=== PATIENT | male | born 1955 | race Caucasian/White ===

== ENCOUNTER 2019-10-28 16:41 | Emergency (ER) | payer SELFPAY ==
[2019-10-28 17:10] VITALS: BMI 29.0
--- NOTE | 2019-10-28 17:29 | ED_ITS ---
HPI - Extremity Problem General: Chief complaint: Extremity Injury, Lower Stated complaint: RIGHT LEG PAIN/INJURY Time Seen by Provider: 10/28/19 17:28 Source: patient Mode of arrival: ambulatory Limitations: no limitations History of Present Illness: HPI Narrative: Patient comes in today for concerns of swelling and redness to the right lower extremity. Patient reports an injury that occurred 1 week ago when his leg was pinned between the gate and a bowl causing injury to the right medial lower leg. Patient was seen yesterday by primary care and was started on cephalexin for possible infection. Patient appears well. Patient appears in mild to moderate pain at rest. Patient reports increased pain with initial ambulation which improves as he is up and moving around. MD Complaint: extremity pain and extremity swelling Review of Systems General: Reports: 10 or more systems reviewed and unremarkable except in HPI and below Musc: Reports: extremity pain and extremity swelling PFS ED PFSH: Social History Smoking and tobacco status: never smoked Physical Exam Const: COMMON NORMALS: no apparent distress and oriented x3 GENERAL AP PEARANCE: cooperative HENMT: COMMON NORMALS: normocephalic, TM's normal bilaterally and external nose normal HEAD & SCALP: normal to inspection and normocephalic NOSE: external nose normal TYMPANIC MEMBRANE: TM's normal bilaterally MOUTH: oral and palatal mucosa normal THROAT: posterior oropharynx normal Eye: GENERAL EYE: normal appearance of both eyes Neck/C-Spine: COMMON NORMALS: full ROM Lymph: LYMPHATIC: no lymphadenopathy noted Chest: COMMONS NORMALS: inspection of chest normal Resp: COMMON NORMALS: normal respiratory effort EFFORT & INSPECTION: Yes able to speak in complete sentences Cardio: COMMON NORMALS: regular rate and regular rhythm RATE: regular rate RHYTHM: regular rhythm GI: COMMON NORMALS: non-tender : COMMON NORMALS: Yes no CVA tenderness BLADDER/KIDNEY EXAM: Yes no CVA tenderness Back/Pelvis: COMMON NORMALS: no CVA tenderness and thoracic and lumbar spine normal to inspection Extremity: NARRATIVE EXTREMITY EXAM: Patient has a area of redness approximately 17 cm x 6 cm ovoid to the right inner lower extremity. There is a palpable area of ballottement that is approximately 6 x 4 ovoid in shape. Patient has distal pulses. Patient has swelling to the extremity with ecchymosis extending from the upper thigh to the sole of the foot. Patient has good range of motion of the extremity without aggravation of pain. Patient's tenderness is mainly at the site of ballottement. Neuro: COMMON NORMALS: oriented x3 and moves all extremities Psych: COMMON NORMALS: mental status grossly normal and cooperative Skin: COMMON NORMALS: no rashes or lesions noted GENERAL SKIN EXAM: no rashes or lesions noted Procedures Abscess I/D Site: lower extremity Side (if applicable): right Local Anesthetic: lidocaine 2% and with epi Amount of anesthesia used (mL): 6 Technique: incised with #11 blade Amount of fluid expressed (mL): 60 Irrigation: No Packing used?: none Course Vital Signs: Vital signs: Vital Signs Pulse Rate 82 10/28/19 19:00 Respiratory Rate 18 10/28/19 19:00 Blood Pressure 122/97 10/28/19 19:00 Pulse Oximetry 96 10/28/19 19:00 MDM - Extremity (Nontraumatic) MDM Narrative: Medical decision making narrative: Patient comes in with a fluctuant mass to the right lower leg. Patient reports injury 1 week ago and has had increasing discomfort and swelling to the area. Patient does have redness and some warmth to the area. Ultrasound of the extremity noted no DVT but a large collection of fluid that could be a hematoma or abscess. With patient consent a 3 cm incision was made in the area of fluctuance and a large hematoma was evacuated from the area. Minimal bleeding was noted. Pressure dressing was applied and patient was monitored post procedure. Patient was recommended to continue cephalexin as directed and was given a dose of ceftriaxone in the ER. Recommended patient avoid activity for the next 2 to 3 days and to monitor for worsening bleeding or high fever. Patient reported understanding and agreed to plan. Discharge Plan Discharge Patient Disposition: Home, Self-Care Clinical Impression: Hematoma of lower leg Condition: Stable Prescriptions: No Action aspirin 81 mg Tablet,Delayed Release (Dr/Ec) 81 mg PO DAILY RF: 0 simvastatin 20 mg tablet 20 mg PO DAILY RF: 0 cephalexin 500 mg Tablet 500 mg PO TID RF: 0 diltiazem HCl 120 mg capsule,extended release 24hr 120 mg PO DAILY RF: 0 Eliquis 5 mg Tablet 5 mg PO BID RF: 0 Discharge Orders: Discharge Order (Routine); Ordered 10/28/19 Ordered By: Dominick Cortez Referrals: Narinder Patrick DO [Family Provider] - Pelon Newman [Primary Care Provider] - Discharge Diet: Usual diet Discharge Activity: Limit activity as instructed Patient Instructions: Abscess Incision and Drainage (ED) Activity Restrictions/Additional Instructions: Keep extremity elevated tonight and limit activity Return to ER for persistent bleeding, high fever, or worsening pain Follow-up with primary care in one week Continue with antibiotics, Cephalexin, as prescribed Coding Level of Care Code ED Professional [employer] for Tamara Fwd Exam Comprehensive
--- NOTE | 2019-10-28 17:48 | US_ITS ---
WS: [id number] ULTRASOUND SOFT TISSUES medial RIGHT leg HISTORY: right lower ext, probable abscess hematoma COMPARISON: None available. TECHNIQUE: 2-D and color Doppler imaging is submitted. There is a large complex nonvascular collection in the soft tissues of the medial RIGHT leg. This cor responds to the palpable abnormality. Collection extends over a length of greater than 5 cm x 2.3 cm. Most consistent with a retracting hematoma. Coarse thick septations from retracting clot. US/US soft tissue/extremity [id number] IMPRESSION: Large retracting hematoma in the soft tissues of the RIGHT leg.
--- NOTE | 2019-10-28 17:48 | USCV_ITS ---
Emmanuel Khan Age: 64 Gender: M : 1955 Exam Date: 10/28/2019 18:17 Ordering Phys: Dominick Cortez Technologist: Woody Hoff Exam Location: [facility] [place]_ Indication: RT LEG HEMATOMA LEG SMASHED BY BULL HISTORY: Lower extremity pain. Lower extremity edema. PROCEDURES: Venous duplex imaging was performed in only the right lower extremity. The following venous structures were evaluated: common femoral vein, profunda vein, proximal portion of the greater saphenous vein, superficial femoral vein, and the popliteal vein. FINDINGS: Normal 2-D Doppler and augmentation and compressibility throughout the lower extremity venous structures. Additional imaging through the proximal calf veins also reveals no thrombus. Limited evaluation of the greater saphenous vein is patent with no thrombus. CONCLUSIONS No DVT right lower extremity. Dr. Beryl Marroquin DO (Electronically Signed) Final Date: 29 October 2019 12:03 S
[2019-10-28 18:03] VITALS: BP 138/88; PULSE 92; RESP 16; O2SAT 97
[2019-10-28 19:00] VITALS: BP 122/97; PULSE 82; RESP 18; O2SAT 96
[2019-10-28 19:30] VITALS: BP 122/97; PULSE 87; RESP 16; O2SAT 98
[2019-10-28] MEDS: cefTRIAXone 1,000 mg SDV 1000 MG IM (19:55)
[2019-10-28 20:00] VITALS: BP 135/90; PULSE 76; RESP 18; O2SAT 96
[2019-10-28 20:50] VITALS: BP 135/90; PULSE 85; RESP 16
== END 2019-10-28 20:51 | disposition home or self-care (01) ==
PROVIDERS: Emergency Provider Nurse Practitioner Family; Family Provider Family Medicine; PCP Physician Assistant Medical
DX: L02.415 Cutaneous abscess of right lower limb (principal); Z79.82 Long term (current) use of aspirin; Z79.01 Long term (current) use of anticoagulants; R60.0 Localized edema
CPT/HCPCS: 10140; 12345; 76882; 93971; 96372; 99282; 99283; J0696

== ENCOUNTER → 2023-09-05 13:47 | Outpatient (BNVA) | payer MEDICARE, SELFPAY | PROVIDERS: Family Provider Family Medicine; PCP Physician Assistant Medical; Visit Provider Dermatology | DX: D48.5 Neoplasm of uncertain behavior of skin (principal); L57.0 Actinic keratosis; C44.612 Basal cell carcinoma of skin of right upper limb, including shoulder; L57.8 Other skin changes due to chronic exposure to nonionizing radiation | CPT/HCPCS: 11102; 17000; 99203 ==

== ENCOUNTER → 2023-09-19 08:01 | Outpatient (BNVA) | payer MEDICARE, SELFPAY | PROVIDERS: Family Provider Family Medicine; PCP Physician Assistant Medical; Visit Provider Dermatology | DX: C44.612 Basal cell carcinoma of skin of right upper limb, including shoulder (principal) | CPT/HCPCS: 11603; 12034 ==

== ENCOUNTER → 2023-10-04 08:06 | Outpatient (BNVA) | payer MEDICARE, SELFPAY | PROVIDERS: Family Provider Family Medicine; PCP Physician Assistant Medical; Visit Provider Dermatology | DX: C44.41 Basal cell carcinoma of skin of scalp and neck (principal); C44.319 Basal cell carcinoma of skin of other parts of face | CPT/HCPCS: 12032; 13132; 17311 ==

== ENCOUNTER → 2024-02-04 13:58 | Outpatient (BNVA) | payer MEDICARE, SELFPAY | PROVIDERS: Family Provider Family Medicine; PCP Physician Assistant Medical; Visit Provider Nurse Practitioner Family | DX: D48.5 Neoplasm of uncertain behavior of skin (principal); L57.0 Actinic keratosis; L82.0 Inflamed seborrheic keratosis; L57.8 Other skin changes due to chronic exposure to nonionizing radiation; L81.3 Cafe au lait spots; Z85.828 Personal history of other malignant neoplasm of skin | CPT/HCPCS: 11102; 17000; 17110; 99213 ==

== ENCOUNTER → 2024-05-22 08:48 | Outpatient (BNVA) | payer MEDICARE, SELFPAY | PROVIDERS: Family Provider Family Medicine; PCP Physician Assistant Medical; Visit Provider Dermatology | DX: C44.311 Basal cell carcinoma of skin of nose (principal); C44.41 Basal cell carcinoma of skin of scalp and neck; D36.12 Benign neoplasm of peripheral nerves and autonomic nervous system, upper limb, including shoulder; L72.0 Epidermal cyst | CPT/HCPCS: 13152; 17272; 17311; 99213 ==

== ENCOUNTER → 2024-06-18 10:32 | Outpatient (BNVA) | payer MEDICARE, SELFPAY | PROVIDERS: Family Provider Family Medicine; PCP Physician Assistant Medical; Visit Provider Dermatology | DX: C44.311 Basal cell carcinoma of skin of nose (principal); L92.3 Foreign body granuloma of the skin and subcutaneous tissue | CPT/HCPCS: 99213 ==

== ENCOUNTER → 2024-07-01 11:33 | Outpatient (BNVA) | payer MEDICARE, SELFPAY | PROVIDERS: Family Provider Family Medicine; PCP Physician Assistant Medical; Visit Provider Dermatology | DX: L92.3 Foreign body granuloma of the skin and subcutaneous tissue (principal); Z48.817 Encounter for surgical aftercare following surgery on the skin and subcutaneous tissue | CPT/HCPCS: 99212 ==

== ENCOUNTER → 2024-08-06 12:50 | Outpatient (BNVA) | payer MEDICARE, SELFPAY | PROVIDERS: Family Provider Family Medicine; PCP Physician Assistant Medical; Visit Provider Nurse Practitioner Family | DX: D36.12 Benign neoplasm of peripheral nerves and autonomic nervous system, upper limb, including shoulder (principal) | CPT/HCPCS: 11102; 17000; 99213 ==

== ENCOUNTER → 2024-10-23 10:40 | Outpatient (BNVA) | payer MEDICARE, SELFPAY | PROVIDERS: Family Provider Family Medicine; PCP Physician Assistant Medical; Visit Provider Student in an Organized Health Care Education/Training Program | DX: K46.9 Unspecified abdominal hernia without obstruction or gangrene (principal) | CPT/HCPCS: 99204 ==

== ENCOUNTER 2024-12-10 08:03 | Day surgery (SDC) | payer MEDICARE, SELFPAY ==
[2024-12-10] VITALS (11 sets, daily range): BP systolic 119–137; BP diastolic 87–105; PULSE 69–115; RESP 11–20; TEMP 36.1–36.4; O2SAT 96–99; BMI 27.5
--- NOTE | 2024-12-10 08:40 | W.PM.OPSFHP ---
Same Day Surgery H&P Indication for Procedure/HPI DATE OF PROCEDURE: December 10, 2024 CHIEF COMPLAINT/INDICATIONFOR SURGICAL PROCEDURE: symptomatic left inguinal hernia PREOP DIAGNOSIS: symptomatic left inguinal hernia PLANNED PROCEDURE: Operation Date: 12/10/24 10:10 Proposed Procedures p LEFT Open Inguinal Hernia Repair w/ Mesh 16612 K46.9(Left) - Almas Best MD Medications/Allergies* Home Medications ?Medication ?Instructions ?Recorded ?Confirmed ?Type apixaban 5 mg tablet (Eliquis) 5 mg PO BID 10/28/19 12/09/24 History diltiazem HCl 120 mg 120 mg PO DAILY 10/28/19 12/09/24 History capsule,extended release 24 hr aspirin 325 mg tablet 325 mg PO DAILY 10/23/24 12/09/24 History tamsulosin 0.4 mg capsule 0.4 mg PO DAILY 10/23/24 12/09/24 History Allergies/Adverse Reactions Allergy/AdvReac Type Severity Reaction Status Date / Time Penicillins Allergy Severe Unknown Verified 10/23/24 10:56 Pertinent History/Comorbid Conditions* Social History Smoking and tobacco/nicotine status: never used tobacco/nicotine Pertinent Exam Findings alert, oriented x 3, clear to auscultation bilaterally, operative site marked and procedure specific exam findings abdomen soft, nt, nd Recommendations Risks and benefits of procedure reviewed Surgery/Procedure today Coding Level of Care Code Acute Code for Chg Jl
--- NOTE | 2024-12-10 08:41 | ECG_ITS ---
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: : 1955 Requested By: Alejandra Clements Order Number: [id number] Reading MD: SHANITA RESTREPO Measurements Intervals [place] Rate: 120 P: 0 NE: 0 QRS: -29 QRSD: 149 T: -13 QT: 343 QTc: 485 Interpretive Statements ATRIAL FIBRILLATION WITH RAPID VENTRICULAR RESPONSE WITH ABERRANT CONDUCTION OR VENTRICULAR PREMATURE COMPLEXES BORDERLINE LEFT AXIS DEVIATION [QRS AXIS < -20] RIGHT BUNDLE BRANCH BLOCK [120+ ms QRS DURATION, UPRIGHT V1, 40+ ms S IN I/aVL/V4/V5/V6] Compared to ECG 04/09/2018 04:31:33 Ventricular premature complex(es) now present Aberrant conduction of supraventricular beat(s) now present Electronically Signed On 12-17-2024 22:55:16 CDT by SHANITA RESTREPO [email or web address]
--- NOTE | 2024-12-10 09:09 | ANES.PREANE2 ---
Pre-Anesthetic Assessment Height/Weight: Height 1.78 m Weight 87.09 kg Temp Pulse Resp BP Pulse Ox O2 Del Method 97.5 F L 69 18 134/97 98 Room Air 12/10/24 08:20 12/10/24 08:20 12/10/24 08:20 12/10/24 08:20 12/10/24 08:20 12/10/24 08:47 Preop Diagnosis: symptomatic left inguinal hernia Operation Date: 12/10/24 10:10 Proposed Procedures p LEFT Open Inguinal Hernia Repair w/ Mesh 13242 K46.9(Left) - Almas Best MD Familial anesthetic complications: None Was Beta Brandy taken within 24 hours: N/A Was Clonidine taken within 24 hours: N/A Last intake: Intake Last Liquid Date 12/09/24 Last Liquid Time 23:00 Last Solid Date 12/09/24 Last Solid Time 20:00 Social No alcohol and No tobacco Exam alert, oriented x 3, clear to auscultation bilaterally and regular rate & rhythm Airway Mallampati: Class II Dentition: other (missing) CV/HEM Atrial Fibrillation EKG obtained Pulse ox placed, HR between 93 - 103. Reviewed EKG with Dr. Murdock to help with interpretation - excess screen artifact. No significant ischemic changes. Patient states able to achieve > 4 METS, denies any SOB, CP, MARTINEZ. Neuropsych Cerebrovascular Accident (residual word finding difficulties and a tendency to veer off to the right ) Anesthetic Plan ASA status: 3 Anesthesia: General Risk of > 500 ml blood loss (7ml/kg in children): No Medications/Allergies Home Medications ?Medication ?Instructions ?Recorded ?Confirmed ?Last Taken ?Type apixaban 5 mg tablet (Eliquis) 5 mg PO BID 10/28/19 12/09/24 12/07/24 History diltiazem HCl 120 mg 120 mg PO DAILY 10/28/19 12/09/24 12/07/24 History capsule,extended release 24 hr aspirin 325 mg tablet 325 mg PO DAILY 10/23/24 12/09/24 12/05/24 History tamsulosin 0.4 mg capsule 0.4 mg PO DAILY 10/23/24 12/09/24 12/09/24 History Allergies Allergy/AdvReac Type Severity Reaction Status Date / Time Penicillins Allergy Severe Unknown Verified 10/23/24 10:56 [facility] Anesthesia Social History Smoking and tobacco/nicotine status: never used tobacco/nicotine
[2024-12-10] MEDS: sodium chloride 0.9% 1,000 ML 30 ML IV (09:31)
[2024-12-10] MEDS: VANCOMYCIN ADD-Vantage 1,000 MG in 0.9% NaCl ADD-Vantage 250 ML 250 MG IV (09:34)
[2024-12-10] MEDS: BUPivacaine 0.25% INJ 10 mL INJECTION (10:06)
[2024-12-10] MEDS: lidocaine-epi 1% 20 mL INJ 10 ML INJECTION (10:07)
--- NOTE | 2024-12-10 10:47 | PM.OP ---
Operative Report Date of procedure: December 10, 2024 Pre-op diagnosis: Symptomatic left inguinal hernia Post-op diagnosis: same Post-op findings: Large direct and indirect left inguinal hernia. Reduced hernia sac into the abdomen. Repaired using plug and patch mesh (size large) Procedure done: Open left inguinal hernia repair with mesh Implants: Plug and patch mesh (size large) Specimens removed/disposition: NA Pathology: none sent Surgeon: Almas Best MD Senior Quality Assurance Engineer: BARRON Anesthesia: General Estimated blood loss (mL): 10 Complications: NA Findings: Large direct and indirect left inguinal hernia. Reduced hernia sac into the abdomen. Repaired using plug and patch mesh (size large). Brief History: 69-year-old male who presented with a symptomatic left inguinal hernia. Discussed risk and benefits and patient agreed to proceed with open left inguinal hernia repair with mesh. Procedure: Patient brought to the OR and placed supine on the table. SCDs were placed and functioning. Preoperative ancef was administered. General anesthesia was induced. A barnes catheter was placed without any complications. The left groin was prepped and draped in the usual sterile fashion. Local infiltration at the surgical site was done using lidocaine/bupivacaine with epinephrine. A 5cm incision was carried out over the left inguinal canal. Tissue dissection was carried down to the external oblique fascia using electrocautery. The fascia was incised and the cord structures were identified. Cord structures were dissected of the hernia sac. I identified a large indirect as well as a direct inguinal hernia. The hernia sac was dissected and reduced into the abdomen. The plug was placed at the site of the deep inguinal ring and the posterior wall of the inguinal canal was reinforced using a mesh patch. The plug was fixed using 2-0 ethibond to the cojoint ligament and inguinal ligament with interrupted sutures. The mesh patch was sutured to the cojoint tendon and the inguinal ligament using interrupted sutures with 2-0 ethibond. The external oblique fascia was closed using 3-0 vicryl. Skin was closed using 4-0 monocryl and surgical glue. Barnes was removed. The patient woke up from anesthesia and was transferred to PACU without any complications.
--- NOTE | 2024-12-10 12:40 | ANE.PACU2 ---
Inpatient post-anesthesia follow up: Airway intact: Yes Vital signs: Temperature 97.6 F Pulse Rate 95 Respiratory Rate 18 Blood Pressure 135/99 Pulse Oximetry 98 Oxygen Delivery Me thod Room Air Oxygen Flow Rate Fraction of Inspir ed Oxygen Hydration adequate: Yes Nausea and vomiting: No Pain level: 1 Mental status: Baseline
== END 2024-12-10 12:40 | disposition home or self-care (01) ==
PROVIDERS: PCP Nurse Practitioner Family; Visit Provider Student in an Organized Health Care Education/Training Program
PROC: (CPT 49505; principal; 2024-12-10 10:10)
DX: K40.90 Unilateral inguinal hernia, without obstruction or gangrene, not specified as recurrent (principal); I48.91 Unspecified atrial fibrillation; Z86.73 Personal history of transient ischemic attack (TIA), and cerebral infarction without residual deficits; Z79.82 Long term (current) use of aspirin
CPT/HCPCS: 49505; 51702; 93005; C1781; J1100; J2371; J2405; J2704; J3010; J3370; J3490; J7030; J7050; J9999

== ENCOUNTER → 2024-12-22 08:14 | Outpatient (BNVA) | payer MEDICARE, SELFPAY | PROVIDERS: PCP Nurse Practitioner Family; Visit Provider Student in an Organized Health Care Education/Training Program | DX: K46.9 Unspecified abdominal hernia without obstruction or gangrene (principal) | CPT/HCPCS: 99024 ==

== ENCOUNTER → 2025-01-22 12:31 | Outpatient (BNVA) | payer MEDICARE, SELFPAY | PROVIDERS: PCP Nurse Practitioner Family; Visit Provider Nurse Practitioner Family | DX: L57.8 Other skin changes due to chronic exposure to nonionizing radiation (principal); L72.0 Epidermal cyst; D36.12 Benign neoplasm of peripheral nerves and autonomic nervous system, upper limb, including shoulder; L73.8 Other specified follicular disorders; Z08 Encounter for follow-up examination after completed treatment for malignant neoplasm; Z85.828 Personal history of other malignant neoplasm of skin; D48.5 Neoplasm of uncertain behavior of skin; L57.0 Actinic keratosis | CPT/HCPCS: 10060; 11102; 17000; 99214 ==